=== PATIENT | male | born 1985 | race African-American/Black ===

== ENCOUNTER 2017-09-18 09:26 | Emergency (ER) | payer OTHER ==
[~2017-09-18] VITALS: Ht 182.9 cm; Wt 106.6 kg
[~2017-09-18 09:26] MED LIST: IBUPROFEN 600600 M1 PO; NOHOMEMEDICATIONS; NORCO 5-325 TA1 EACH PO; NORFLEX100 MG PO
[2017-09-18] MEDS ORDERED: HYDROCODONE-AP1 EAC6 PO (10:39)
[2017-09-18] MEDS ORDERED: IBUPROFEN 600600 M1 PO (10:39)
== END 2017-09-18 11:47 | disposition home or self-care (01) ==
LOC: ER 09:26
DX: S16.1XXA Strain of muscle, fascia and tendon at neck level, initial encounter (principal); M25.512 Pain in left shoulder; F10.99 Alcohol use, unspecified with unspecified alcohol-induced disorder; S29.012A Strain of muscle and tendon of back wall of thorax, initial encounter; W01.0XXA Fall on same level from slipping, tripping and stumbling without subsequent striking against object, initial encounter; Y93.89 Activity, other specified; Y92.89 Other specified places as the place of occurrence of the external cause; Y99.8 Other external cause status

== ENCOUNTER 2017-12-15 14:57 | Emergency (ER) | payer OTHER ==
[~2017-12-15] VITALS: Ht 185.4 cm; Wt 79.4 kg
[~2017-12-15 14:57] MED LIST changes: +HYDROCODONE-AP1 EAC6 PO
[2017-12-15] MEDS ORDERED: MOBIC7.5 MG PO (15:48)
[2017-12-15] MEDS ORDERED: HYDROCODONE-AP1 EAC6 PO (15:48)
[2017-12-15 16:03] VITALS: BP 132/94
== END 2017-12-15 16:06 | disposition home or self-care (01) ==
LOC: ER 14:57
DX: S39.011A Strain of muscle, fascia and tendon of abdomen, initial encounter (principal); X50.0XXA Overexertion from strenuous movement or load, initial encounter; Y93.89 Activity, other specified; Y92.89 Other specified places as the place of occurrence of the external cause; Y99.8 Other external cause status

== ENCOUNTER 2018-06-13 11:37 | Emergency (ER) | payer OTHER ==
[~2018-06-13] VITALS: Ht 182.9 cm; Wt 96.2 kg
[~2018-06-13 11:37] MED LIST changes: +MOBIC7.5 MG PO
[2018-06-13 12:06] LABS: URINE BILIRUBIN NEGATIVE (Negative); URINE BLOOD NEGATIVE (Negative); URINE CLARITY CLEAR; URINE COLOR YELLOW; URINE GLUCOSE-RANDOM* NEGATIVE (Negative); URINE KETONES NEGATIVE (Negative); URINE LEUKOCYTES-REFLEX NEGATIVE (Negative); URINE NITRITE-REFLEX NEGATIVE (Negative); URINE PROTEIN (DIPSTICK) NEGATIVE (Negative); URINE SPECIFIC GRAVITY >= 1.030 (1.005-1.035); URINE UROBILINOGEN 0.2 E.U./dl (0.2-1.0)
[2018-06-13 12:10] LABS: ABSOLUTE NEUTROPHILS 3.2 thou/uL (1.4-8.2); BASOPHILS 0.8 % (0.0-2.0); HEMATOCRIT 40.7 % (42.0-52.0); HEMOGLOBIN 13.2 gm/dL (14.0-18.0); MCH 23.3 pg (26.0-34.0); MCHC 32.5 g/dL (28.0-37.0); MCV 71.8 fL (80.0-100.0); MONOCYTES 6.2 % (1.0-8.0); PLATELET COUNT 190 thou/uL (150-400); RBC 5.67 mil/uL (4.50-6.00); RDW 14.8 % (10.5-14.5); WBC 5.4 thou/uL (4.0-11.0)
[2018-06-13 12:17] LABS: CALCIUM 9.6 mg/dL (8.5-10.1); CREATININE 1.3 mg/dL (0.7-1.3)
[2018-06-13] MEDS ORDERED: NORCO 5-325 TA1 EACH PO (14:24)
[2018-06-13] MEDS ORDERED: IBUPROFEN 400400 M2 PO (14:24)
[2018-06-13 14:26] VITALS: BP 128/87
== END 2018-06-13 14:36 | disposition home or self-care (01) ==
LOC: ER 11:37
PROVIDERS: Student in an Organized Health Care Education/Training Program
DX: N20.0 Calculus of kidney (principal)

== ENCOUNTER 2018-11-15 05:16 | Emergency (ER) | payer OTHER ==
[~2018-11-15] VITALS: Ht 182.9 cm; Wt 97.5 kg
[~2018-11-15 05:16] MED LIST changes: +IBUPROFEN 400400 M2 PO
[2018-11-15 06:05] LABS: URINE BILIRUBIN NEGATIVE (Negative); URINE BLOOD NEGATIVE (Negative); URINE CLARITY CLEAR; URINE COLOR YELLOW; URINE GLUCOSE-RANDOM* NEGATIVE (Negative); URINE KETONES NEGATIVE (Negative); URINE LEUKOCYTES-REFLEX NEGATIVE (Negative); URINE NITRITE-REFLEX NEGATIVE (Negative); URINE PROTEIN (DIPSTICK) NEGATIVE (Negative); URINE SPECIFIC GRAVITY >= 1.030 (1.005-1.035); URINE UROBILINOGEN 0.2 E.U./dl (0.2-1.0)
[2018-11-15 06:24] LABS: ABSOLUTE NEUTROPHILS 2.7 thou/uL (1.4-8.2); BASOPHILS 0.8 % (0.0-2.0); EOSINOPHILS 8.8 % (0.0-3.0); HEMATOCRIT 39.9 % (42.0-52.0); LYMPHOCYTES 30.8 % (24.0-44.0); MCH 23.3 pg (26.0-34.0); MCHC 32.6 g/dL (28.0-37.0); MCV 71.3 fL (80.0-100.0); MONOCYTES 5.8 % (1.0-8.0); PLATELET COUNT 170 thou/uL (150-400); POLYS 53.8 % (36.0-66.0); RBC 5.59 mil/uL (4.50-6.00); RDW 15.3 % (10.5-14.5)
[2018-11-15 06:29] LABS: CALCIUM 9.2 mg/dL (8.5-10.1); CREATININE 1.2 mg/dL (0.7-1.3); POTASSIUM 3.9 mmol/L (3.5-5.1)
[2018-11-15 06:36] LABS: ALBUMIN 3.9 g/dL (3.4-5.0); TOTAL BILIRUBIN 0.5 mg/dL (<0.1-1.0); TOTAL PROTEIN 7.7 g/dL (6.4-8.2)
[2018-11-15] MEDS ORDERED: PRILOSEC 20 MG20 MG PO (07:58)
[2018-11-15] MEDS ORDERED: ACETAMINOPHEN-1 EAC1 PO (07:58)
[2018-11-15] MEDS ORDERED: ANUSOL-HC25 MG RECTAL (07:58)
[2018-11-15 08:16] VITALS: BP 130/80
== END 2018-11-15 08:51 | disposition home or self-care (01) ==
LOC: ER 05:16
PROVIDERS: Emergency Medicine
DX: N13.30 Unspecified hydronephrosis (principal); K62.89 Other specified diseases of anus and rectum

== ENCOUNTER 2018-11-18 05:56 | Emergency (ER) | payer OTHER ==
[~2018-11-18] VITALS: Ht 182.9 cm; Wt 97.5 kg
[~2018-11-18 05:56] MED LIST changes: +ACETAMINOPHEN-1 EAC1 PO; +ANUSOL-HC25 MG RECTAL; +PRILOSEC 20 MG20 MG PO
[2018-11-18 06:38] LABS: URINE BILIRUBIN NEGATIVE (Negative); URINE BLOOD NEGATIVE (Negative); URINE CLARITY CLEAR; URINE COLOR YELLOW; URINE GLUCOSE-RANDOM* NEGATIVE (Negative); URINE KETONES NEGATIVE (Negative); URINE LEUKOCYTES-REFLEX NEGATIVE (Negative); URINE NITRITE-REFLEX NEGATIVE (Negative); URINE PROTEIN (DIPSTICK) NEGATIVE (Negative); URINE SPECIFIC GRAVITY 1.025 (1.005-1.035); URINE UROBILINOGEN 0.2 E.U./dl (0.2-1.0)
[2018-11-18 06:47] LABS: ABSOLUTE NEUTROPHILS 2.3 thou/uL (1.4-8.2); BASOPHILS 1.3 % (0.0-2.0); EOSINOPHILS 8.7 % (0.0-3.0); HEMATOCRIT 38.1 % (42.0-52.0); HEMOGLOBIN 12.3 gm/dL (14.0-18.0); LYMPHOCYTES 38.4 % (24.0-44.0); MCH 23.1 pg (26.0-34.0); MCHC 32.1 g/dL (28.0-37.0); MCV 71.8 fL (80.0-100.0); MONOCYTES 6.3 % (1.0-8.0); PLATELET COUNT 177 thou/uL (150-400); POLYS 45.3 % (36.0-66.0); RBC 5.31 mil/uL (4.50-6.00); RDW 15.4 % (10.5-14.5); WBC 5.1 thou/uL (4.0-11.0)
[2018-11-18 06:50] LABS: ANION GAP 8 mmol/L (7-16); BUN 14 mg/dL (7-18); CALCIUM 9.1 mg/dL (8.5-10.1); CHLORIDE 103 mmol/L (98-107); CO2 30 mmol/L (21-32); CREATININE 1.3 mg/dL (0.7-1.3); GLUCOSE 116 mg/dL (74-106); POTASSIUM 3.6 mmol/L (3.5-5.1); SODIUM 141 mmol/L (136-145)
[2018-11-18 06:55] LABS: ALBUMIN 3.7 g/dL (3.4-5.0); DIRECT BILIRUBIN < 0.1 mg/dL (<0.1-0.3); LIPASE 136 U/L (73-393); SGOT 13 U/L (15-37); SGPT 18 U/L (30-65); TOTAL BILIRUBIN 0.3 mg/dL (<0.1-1.0); TOTAL PROTEIN 7.3 g/dL (6.4-8.2)
[2018-11-18 07:35] VITALS: BP 122/86
[2018-11-18] MEDS ORDERED: NORCO 5-325 TA1 EACH PO (07:35)
[2018-11-18] MEDS ORDERED: MOBIC15 MG PO (07:35)
== END 2018-11-18 07:51 | disposition home or self-care (01) ==
LOC: ER 05:56
PROVIDERS: Emergency Medicine
DX: R10.32 Left lower quadrant pain (principal); R39.2 Extrarenal uremia; N50.89 Other specified disorders of the male genital organs

== ENCOUNTER 2018-12-22 08:45 | Emergency (ER) | payer OTHER ==
[~2018-12-22] VITALS: Ht 182.9 cm; Wt 97.5 kg
[~2018-12-22 08:45] MED LIST changes: +MOBIC15 MG PO
[2018-12-22 09:16] LABS: CALCIUM 8.9 mg/dL (8.5-10.1); CREATININE 1.3 mg/dL (0.7-1.3)
[2018-12-22 09:19] LABS: ABSOLUTE NEUTROPHILS 2.8 thou/uL (1.4-8.2); BASOPHILS 0.7 % (0.0-2.0); EOSINOPHILS 4.6 % (0.0-3.0); HEMATOCRIT 41.4 % (42.0-52.0); HEMOGLOBIN 13.3 gm/dL (14.0-18.0); LYMPHOCYTES 38.9 % (24.0-44.0); MCH 23.2 pg (26.0-34.0); MCHC 32.1 g/dL (28.0-37.0); MCV 72.1 fL (80.0-100.0); MONOCYTES 5.8 % (1.0-8.0); PLATELET COUNT 179 thou/uL (150-400); RBC 5.74 mil/uL (4.50-6.00); RDW 15.7 % (10.5-14.5); WBC 5.7 thou/uL (4.0-11.0)
[2018-12-22 09:22] LABS: ALBUMIN 3.9 g/dL (3.4-5.0); TOTAL BILIRUBIN 0.8 mg/dL (<0.1-1.0); TOTAL PROTEIN 7.4 g/dL (6.4-8.2)
[2018-12-22 11:50] VITALS: BP 142/82
[2018-12-22] MEDS ORDERED: NORCO 5-325 TA1 EAC1 PO (11:57)
[2018-12-22] MEDS ORDERED: NORFLEX100 MG PO (11:57)
[2018-12-22] MEDS ORDERED: NAPROSYN500 MG PO (11:57)
== END 2018-12-22 11:50 | disposition home or self-care (01) ==
LOC: ER 08:45
PROVIDERS: Emergency Medicine
DX: S39.012A Strain of muscle, fascia and tendon of lower back, initial encounter (principal); M25.561 Pain in right knee; V89.2XXA Person injured in unspecified motor-vehicle accident, traffic, initial encounter; Y92.89 Other specified places as the place of occurrence of the external cause; Y93.89 Activity, other specified; Y99.8 Other external cause status